=== PATIENT | male | born 1980 | race Caucasian/White ===

== ENCOUNTER 2016-03-23 09:55 | Day surgery (SDC) | payer BC ==
[2016-03-21 08:50] VITALS: BMI 31.6
--- NOTE | 2016-03-23 04:31 | P.GSHP ---
History of Present Illness H&P Date: 03/23/16 CHIEF COMPLAINT: Abdominal pain with diarrhea and history of diverticulitis HISTORY OF PRESENT ILLNESS: The patient is a 35-year-old male who presents with abdominal pain including diarrhea as well as diverticulitis. Lower endoscopy was offered for further evaluation and management. PAST MEDICAL HISTORY: Please see list. PAST SURGICAL HISTORY: Please see list. MEDICATIONS: Please see list. ALLERGIES: Please see list. SOCIAL HISTORY: No illicit drug use FAMILY HISTORY: No reports of Crohn disease or ulcerative colitis. REVIEW OF ORGAN SYSTEMS: CONSTITUTIONAL: No reports of fevers or chills. No reports of weight loss despite prior attempts. GI: Has diarrhea including change in bowel habits. PHYSICAL EXAM: VITAL SIGNS: Stable GENERAL: Well-developed pleasant male in no acute distress. HEENT: No scleral icterus. Extraocular movements grossly intact. Moist buccal mucosa. NECK: Supple without lymphadenopathy. CHEST: Unlabored respirations. Equal bilateral excursions. CARDIOVASCULAR: Regular rate and rhythm. Distal 2+ pulses. ABDOMEN: Soft, nontender, nondistended. MUSCULOSKELETAL: No clubbing, cyanosis, or edema. ASSESSMENT: 1. History of diverticulitis 2. Change in bowel habits. 3. Diarrhea PLAN: 1. Recommend proceeding with a lower endoscopy Past Medical History Additional Past Medical History / Comment(s): abdominal pain, hx diverticulitis History of Any Multi-Drug Resistant Organisms: C-DIFF Date of last positivie culture/infection: 2013 MDRO Source:: stool Past Surgical History: Orthopedic Surgery Additional Past Surgical History / Comment(s): left wrist Past Anesthesia/Blood Transfusion Reactions: Motion Sickness, Postoperative Nausea & Vomiting (PONV) Past Psychological History: No Psychological Hx Reported Smoking Status: Former smoker Past Alcohol Use History: Occasional Additional Past Alcohol Use History / Comment(s): smoked 3-4 years in 20's less than one ppd Past Drug Use History: None Reported - Past Family History Brother(s) Family Medical History: Cancer Additional Family Medical History / Comment(s): esophagus Mother Family Medical History: No Reported History Medications and Allergies Home Medications Medication Instructions Recorded Confirmed Type Ibuprofen [Motrin] 600 mg PO DIRECTED PRN 03/21/16 03/21/16 History Allergies Allergy/AdvReac Type Severity Reaction Status Date / Time No Known Allergies Allergy Verified 03/21/16 08:53
[~2016-03-23 09:55] MED LIST: LACTATED RINGERS 1,000 ML IV SCH; LIDOCAINE 1% 20 ML VIAL (10MG/ML) FOR IV START INTRADERMA PRN
[2016-03-23 10:29] VITALS: TEMP 97.8
[2016-03-23] MEDS ORDERED: PROPOFOL 10 MG/ML 20 ML VIAL IV ONE (10:56)
--- NOTE | 2016-03-23 11:22 | P.PCN ---
Date of Procedure: 03/23/16 Description of Procedure: PREOPERATIVE DIAGNOSES: 1. Personal history of complicated diverticulitis. 2. Family history of colitis. 3. Change in bowel habits. POSTOPERATIVE DIAGNOSES: 1. Personal history of complicated diverticulitis. 2. Mild recent diverticulitis sigmoid colon. 3. Family history of colitis. 4. Sigmoid colonic stricture. 5. Change in bowel habits. PROCEDURE PERFORMED: Colonoscopy to the ileocecal valve and appendiceal orifice. SURGEON: Dr. Umu Irving. ANESTHESIA: MAC. INDICATIONS: The patient is a 35-year-old gentleman who presents with recurrent diverticulitis attack in 12 months. He reports change in bowel habits. Benefits and risks were described. Separately, he also complains o f chronic constipation. Informed consent was obtained. DESCRIPTION: Patient was brought to the endoscopy suite and laid in the left lateral decubitus position. After adequate IV sedation, the rectum was examined with 2% lidocaine jelly. The rectal tone was within normal limits. The prostate was smooth and without nodularity. No lesions were palpated in the rectal vault. Olympus colonoscope was advanced until the ileocecal valve and appendiceal orifice were clearly viewed. The prep was excellent with clear visualization of mucosal lewis. Slowly, the scope was withdrawn to inspect each mucosal fold. Throughout the colon were moderate size diverticuli of the transverse colon and descending colon including sigmoid colon. Along the sigmoid area were medium-sized, mouth diverticula with recent diverticulitis and stricture at 20 cm from the anal verge without mild inflammation. No polyps were encountered. Retroflexion of the scope confirmed no evidence of prolapsed internal hemorrhoids. The colon was desufflated. The patient tolerated the procedure well. FINDINGS: 1. Sigmoid diverticulosis with diverticulitis with stricture. 2. No colonic polyps identified. 3. No arteriovenous malformation. Withdrawal time over 6 minutes. RECOMMENDATIONS: May proceed with surgical resection of sigmoid colon. Lower endoscopy as needed. Plan - Discharge Summary Discharge Medication List Ibuprofen [Motrin] 600 mg PO DIRECTED PRN 03/21/16 [History]
[2016-03-23 11:32] VITALS: PULSE 81
[2016-03-23 11:48] VITALS: BP 108/68; RESP 18
== END 2016-03-23 12:04 | disposition home or self-care (01) ==
LOC: ORWHC2ENDO 09:55
PROVIDERS: ATTEND Surgery Plastic and Reconstructive Surgery
DX: K57.32 Diverticulitis of large intestine without perforation or abscess without bleeding (principal); K57.30 Diverticulosis of large intestine without perforation or abscess without bleeding; K62.4 Stenosis of anus and rectum; Z87.891 Personal history of nicotine dependence; Z83.79 Family history of other diseases of the digestive system
CPT/HCPCS: 45378; J2704; 99153

== ENCOUNTER → 2016-04-06 | Outpatient (CLI) | payer BC ==
[2016-04-06 10:35] LABS: Partial Thromboplastin Time 23.5 sec (22.0-30.0); Prothrombin Time 10.2 sec (9.0-12.0)
--- NOTE | 2016-04-06 12:27 | XR ---
EXAMINATION TYPE: XR chest 2V DATE OF EXAM: 04/06/2016 10:43 AM COMPARISON: NONE HISTORY: Preop for diverticulitis FINDINGS: The lungs are clear and there is no pneumothorax, pleural effusion, or focal pneumonia. Hypertrophic change of the spine noted. IMPRESSION: 1. No acute process.
== END | disposition home or self-care (01) ==
LOC: LABWHC1 09:45
PROVIDERS: ATTEND Surgery Plastic and Reconstructive Surgery
DX: Z01.818 Encounter for other preprocedural examination (principal); K57.92 Diverticulitis of intestine, part unspecified, without perforation or abscess without bleeding; Z01.812 Encounter for preprocedural laboratory examination
CPT/HCPCS: 36415; 71020; 85610; 85730; 86850; 86900; 86901

== ENCOUNTER 2016-04-14 10:26 | Inpatient (IN) | payer BC ==
[2016-04-04 11:47] VITALS: BMI 31.6
--- NOTE | 2016-04-14 08:47 | P.GSHP ---
History of Present Illness H&P Date: 04/14/16 CHIEF COMPLAINT: Abdominal pain with diarrhea and history of diverticulitis HISTORY OF PRESENT ILLNESS: Darrion Morgan is a 35 years-old male who comes in with a history of recurrent diverticulitis for now 2 years. He had a recent colonoscopy that is consistent with a colonic stricture. He now presents for further evaluation, particularly for surgical intervention. PAST MEDICAL HISTORY: Please see list. PAST SURGICAL HISTORY: Please see list. MEDICATIONS: Please see list. ALLERGIES: Please see list. SOCIAL HISTORY: No illicit drug use FAMILY HISTORY: No reports of Crohn disease or ulcerative colitis. REVIEW OF ORGAN SYSTEMS: CONSTITUTIONAL: No reports of fevers or chills. No reports of weight loss despite prior attempts. GI: Has diarrhea including change in bowel habits. PHYSICAL EXAM: VITAL SIGNS: Stable GENERAL: Well-developed pleasant male in no acute distress. HEENT: No scleral icterus. Extraocular movements grossly intact. Moist buccal mucosa. NECK: Supple without lymphadenopathy. CHEST: Unlabored respirations. Equal bilateral excursions. CARDIOVASCULAR: Regular rate and rhythm. Distal 2+ pulses. Abdomen: Bilateral lower abdominal tenderness. MUSCULOSKELETAL: No clubbing, cyanosis, or edema. STUDIES: Colonoscopy was consistent with stricture of the sigmoid at approximately 20 cm. ASSESSMENT: 1. History of recurrent diverticulitis. 2. Left lower quadrant abdominal pain. 3. Family history of diverticulitis. PLAN: 1. The benefits and risks of minimally evasive laparoscopic sigmoid colectomy with possible open technique and possible ostomy were reviewed. 2. Given the chronicity of his symptoms, possibility of ureteral injury was also described. 3. Inpatient hospitalization was advised for over 2 nights. 4. DVT prophylaxis. 5. Antibiotics prophylaxis. 6. Complete time off for recovery at least 4 weeks was also reviewed. 7. He has been prescribed a high protein diet, especially to follow after surgery to which he demonstrated understanding. Past Medical History Additional Past Medical History / Comment(s): abdominal pain, hx diverticulitis History of Any Multi-Drug Resistant Organisms: C-DIFF Date of last positivie culture/infection: 2013 MDRO Source:: stool Past Surgical History: Orthopedic Surgery Additional Past Surgical History / Comment(s): left wrist,colonoscopy x 2 Past Anesthesia/Blood Transfusion Reactions: Motion Sickness, Postoperative Nausea & Vomiting (PONV) Additional Past Anesthesia/Blood Transfusion Reaction / Comment(s): no hx blood transfusion Past Psychological History: No Psychological Hx Reported Smoking Status: Former smoker Past Alcohol Use History: Occasional Additional Past Alcohol Use History / Comment(s): smoked 3-4 years in 20's less than one ppd Past Drug Use History: None Reported - Past Family History Brother(s) Family Medical History: Cancer Additional Family Medical History / Comment(s): esophagus Father Family Medical History: Diabetes Mellitus Mother Family Medical History: No Reported History Medications and Allergies Home Medications Medication Instructions Recorded Confirmed Type Ibuprofen [Motrin] 600 mg PO Q6H PRN 03/21/16 04/04/16 History Allergies Allergy/AdvReac Type Severity Reaction Status Date / Time No Known Allergies Allergy Verified 04/04/16 11:39
[~2016-04-14 10:26] MED LIST changes: +ACETAMINOPHEN TAB 500 MG TAB PO ONE; +ALVIMOPAN 12 MG CAPSULE PO ONE; +Antibiotics per Pharmacy 1 EACH MISC MISCELLANE PRN; +DEXAMETHASONE SOD PHOSPHATE 10 MG/ML 1 ML VIAL IV ONE; +HEPARIN SODIUM,PORCINE 5,000 UNIT/ML 1 ML VIAL SQ ONE; +HYDROmorphone 1 MG/ML 1 ML SYRINGE IVP PRN; -LACTATED RINGERS 1,000 ML IV SCH; -LIDOCAINE 1% 20 ML VIAL (10MG/ML) FOR IV START INTRADERMA PRN; +MIDAZOLAM 2 MG/2 ML VIAL IV PRN; +ONDANSETRON 4 MG/2 ML VIAL IVP ONE; +ceFAZolin 2 GM in SODIUM CHLORIDE 0.9% 100 ML IVPB ONE; +metroNIDAZOLE-NS PMX 500 MG in SALINE 1 100ML.BAG IVPB STA
[2016-04-14] MEDS ORDERED: LIDOCAINE 1% 20 ML VIAL (10MG/ML) FOR IV START INTRADERMA ONE (11:21)
[2016-04-14] MEDS: LACTATED RINGERS 1,000 ML IV SCH (11:23)
[2016-04-14 11:38] LABS: Basophils % (A) 1 %; CH 30.3; CHCM 35.5; Eosinophils # (A) 0.2 k/uL (0-0.7); Eosinophils % (A) 3 %; HDW 2.71; HGB 17.3 gm/dL (13.0-17.5); Luc # (Auto) 0.14; Luc % (Auto) 2; Lymphocytes # (A) 1.8 k/uL (1.0-4.8); Lymphocytes % (A) 32 %; MCH 29.6 pg (25.0-35.0); MCHC 34.6 g/dL (31.0-37.0); MCV 85.5 fL (80.0-100.0); Mean Platelet Volume 6.7; Monocytes # (A) 0.3 k/uL (0-1.0); Monocytes % (A) 6 %; Neutrophils # (A) 3.3 k/uL (1.3-7.7); Neutrophils % (A) 57 %; RBC 5.85 m/uL (4.30-5.90); WBC 5.8 k/uL (3.8-10.6); WBC (Perox) 5.93
[2016-04-14] MEDS ORDERED: fentaNYL (PF) 50 MCG/ML 2 ML AMP IV ONE (11:45)
[2016-04-14] MEDS ORDERED: MIDAZOLAM 2 MG/2 ML VIAL IV ONE (11:45)
[2016-04-14 11:59] LABS: ALT 79 U/L (21-72); AST 39 U/L (17-59); Alkaline Phosphatase 82 U/L (38-126); Anion Gap 14 mmol/L; Blood Urea Nitrogen 12 mg/dL (9-20); Calcium 9.6 mg/dL (8.4-10.2); Carbon Dioxide 22 mmol/L (22-30); Chloride 105 mmol/L (98-107); Glucose 91 mg/dL (74-99); Magnesium 2.1 mg/dL (1.6-2.3); Non-African American GFR(MDRD) >60 (>60 ml/min/1.73 sqM); Potassium 4.5 mmol/L (3.5-5.1); Sodium 141 mmol/L (137-145); Total Bilirubin 1.2 mg/dL (0.2-1.3)
[2016-04-14] MEDS ORDERED: NALOXONE 0.4 MG/ML 1 ML VIAL IV PRN (12:05)
[2016-04-14] MEDS ORDERED: SCOPOLAMINE 1.5MG/72HR PATCH TRANSDERM STA (12:05)
[2016-04-14] MEDS ORDERED: ONDANSETRON 4 MG/2 ML VIAL IVP PRN (12:05)
[2016-04-14] MEDS ORDERED: LIDOCAINE 1% INJ 10MG/ML (20 ML MDV) ONE (12:13)
[2016-04-14] MEDS ORDERED: PROPOFOL 10 MG/ML 20 ML VIAL IV ONE (12:13)
[2016-04-14] MEDS ORDERED: VECURONIUM 10 MG VIAL IV ONE (12:13)
[2016-04-14] MEDS ORDERED: fentaNYL (PF) 50 MCG/ML 2 ML AMP ONE (12:13)
[2016-04-14] MEDS ORDERED: GLYCOPYRROLATE 0.2 MG/ML 2 ML VIAL ONE (12:13)
[2016-04-14] MEDS ORDERED: ALBUMIN HUMAN 5% 250 ML BOTTLE IVPB ONE (12:13)
[2016-04-14] MEDS ORDERED: MIDAZOLAM 2 MG/2 ML VIAL ONE (12:13)
[2016-04-14] MEDS ORDERED: PHENYLEPHRINE-0.9% NACL SYG 1 MG/10 ML SYRINGE ONE (12:13)
[2016-04-14] MEDS ORDERED: NEOSTIGMINE 1 MG/ML 10 ML VIAL ONE (12:13)
[2016-04-14] MEDS ORDERED: SUCCINYLCHOLINE CHLORIDE 100 MG/5 ML SYR IV ONE (12:13)
[2016-04-14] MEDS ORDERED: ONDANSETRON 4 MG/2 ML VIAL ONE (12:13)
[2016-04-14] MEDS ORDERED: HYDROmorphone (PF) 1 MG/ML ONE (12:13)
[2016-04-14] MEDS ORDERED: BUPIVACAIN-EPI 0.25%-1:200,000 30 ML VIAL SQ ONE (12:47)
[2016-04-14] MEDS ORDERED: LACTATED RINGERS 1,000 ML IV ONE ×3 (13:48→16:06)
[2016-04-14] MEDS ORDERED: SODIUM CHLORIDE 0.9% 100 ML with ceFAZolin 2,000 MG IV ONE ×2 (16:08)
[2016-04-14] MEDS ORDERED: BENZOCAINE/MENTHOL LOZENG 1 EACH LOZENGE MUCOUS MEM PRN (16:52)
--- NOTE | 2016-04-14 16:52 | P.PCN ---
Date of Procedure: 04/14/16 Preoperative Diagnosis: Diverticulitis Postoperative Diagnosis: Diverticulitis Procedure(s) Performed: Laparoscopic sigmoid colectomy, mobilization of splenic flexure, intraoperative colonoscopy, placement of #19 round drain in pelvis. Anesthesia: GETA, local, spinal Surgeon: Umu Irving Estimated Blood Loss (ml): 200 Pathology: other (Sigmoid colon) Condition: stable Disposition: floor Operative Findings: 25 mm ILS, final anastomosis negative for leak.
[2016-04-14] MEDS: DEXTROSE 5%-LACTATED RINGERS 1,000 ML IV SCH ×2 (17:08→17:20)
[2016-04-14] MEDS: BUPIVACAINE (PF) 0.5% 50 ML, HYDROmorphone 5 MG in SODIUM CHLORIDE 0.9% 198 ML EPIDURAL PRN (17:08)
[2016-04-14] MEDS: diphenhydrAMINE 50 MG/ML 1 ML VIAL IVP PRN (18:22)
[2016-04-14] MEDS: FAMOTIDINE 20 MG/2 ML VIAL IV SCH (22:17)
[2016-04-14] MEDS: D5-0.45% NACL WITH KCL 20MEQ/L 1,000 ML IV SCH (22:17)
[2016-04-14] MEDS: metroNIDAZOLE-NS PMX 500 MG in SALINE 1 100ML.BAG IVPB SCH (22:17)
[2016-04-14] MEDS: METOCLOPRAMIDE 5 MG/ML 2 ML VIAL IVP SCH (22:17)
[2016-04-14] MEDS: HEPARIN SODIUM,PORCINE 5,000 UNIT/ML 1 ML VIAL SQ SCH (22:18)
[2016-04-15] MEDS: ceFAZolin 2 GM in SODIUM CHLORIDE 0.9% 100 ML IVPB SCH ×3 (00:33→16:36)
[2016-04-15] MEDS: METOCLOPRAMIDE 5 MG/ML 2 ML VIAL IVP SCH ×5 (00:34→23:22)
[2016-04-15] MEDS: metroNIDAZOLE-NS PMX 500 MG in SALINE 1 100ML.BAG IVPB SCH ×2 (04:00→11:58)
[2016-04-15] MEDS: D5-0.45% NACL WITH KCL 20MEQ/L 1,000 ML IV SCH ×3 (05:44→16:45)
[2016-04-15] MEDS: diphenhydrAMINE 50 MG/ML 1 ML VIAL IVP PRN (05:54)
[2016-04-15 07:18] LABS: Basophils % (A) 0 %; CH 29.9; CHCM 34.3; Eosinophils % (A) 0 %; HCT 39.2 % (39.0-53.0); HDW 2.69; Luc # (Auto) 0.06; Luc % (Auto) 1; Lymphocytes # (A) 0.7 k/uL (1.0-4.8); Lymphocytes % (A) 9 %; MCH 29.1 pg (25.0-35.0); MCHC 33.2 g/dL (31.0-37.0); MCV 87.7 fL (80.0-100.0); Mean Platelet Volume 7.4; Monocytes # (A) 0.5 k/uL (0-1.0); Monocytes % (A) 6 %; Neutrophils # (A) 7.2 k/uL (1.3-7.7); Neutrophils % (A) 85 %; RBC 4.47 m/uL (4.30-5.90); RDW 12.9 % (11.5-15.5); WBC 8.6 k/uL (3.8-10.6); WBC (Perox) 8.77
[2016-04-15 07:22] LABS: Anion Gap 9 mmol/L; Blood Urea Nitrogen 12 mg/dL (9-20); Calcium 8.9 mg/dL (8.4-10.2); Carbon Dioxide 26 mmol/L (22-30); Chloride 106 mmol/L (98-107); Glucose 97 mg/dL (74-99); Non-African American GFR(MDRD) >60 (>60 ml/min/1.73 sqM); Potassium 4.4 mmol/L (3.5-5.1); Sodium 141 mmol/L (137-145)
--- NOTE | 2016-04-15 07:38 | OP ---
DATE OF SERVICE: 04/14/2016 SURGEON: MELANY DAMICO MD ASSISTANTS: NONE. PREOPERATIVE DIAGNOSES: 1. Obesity. 2. Body mass index over 30. 3. Recurrent sigmoid diverticulitis. 4. Left lower quadrant abdominal pain. 5. Previous history of diverticulitis with sepsis. POSTOPERATIVE DIAGNOSES: 1. Obesity. 2. Body mass index over 30. 3. Recurrent sigmoid diverticulitis. 4. Left lower quadrant abdominal pain. 5. Previous history of diverticulitis with sepsis. 6. History of oxygen desaturation. OPERATION: 1. Laparoscopic sigmoid colectomy with primary colorectal anastomosis, low anterior resection. 2. Laparoscopic mobilization of splenic flexure. 3. Placement of round #19 Carlo drain left pelvis. 4. Intraoperative colonoscopy for flexible sigmoidoscopy. ANESTHESIA: General with epidural as well as 60 mL 0.25% Marcaine with epinephrine. ESTIMATED BLOOD LOSS: 200 mL. SPECIMENS: Sigmoid colon. COMPLICATIONS: None. FINDINGS: 1. Dense adhesions along the sigmoid colon along the pelvis, a low anterior resection performed. 2. Mobilization of splenic flexure performed to obtain adequate length. 3. Intraoperative revision of colorectal anastomosis performed with negative leak test. INDICATIONS: Darrion Valdez is a 35-year-old gentleman who over 2 years ago had sepsis secondary to diverticulitis. Over the last 2 years he had been trying to manage primarily with dietary changes as well as medications; however, his pain had become persistent and chronic. He just underwent a colonoscopy, which now shows stricture along the sigmoid colon. Surgical intervention with sigmoid colectomy and low anterior resection was described including bleeding, infection, injury to the ureters as well as recurrence and need for further surgery. Placement of ostomy was also described. Informed consent had been obtained. Also preoperative preparation including a low caloric, high-protein diet was performed. Enhanced colon recovery pathway was initiated. The patient underwent a bowel prep mechanical prep as well. DESCRIPTION OF PROCEDURE: In the preoperative area an epidural was placed per Anesthesia. The patient was transferred to the operating room, laid in supine position. After general induction, he was repositioned in modified lithotomy position. Prior to incision, a timeout protocol was confirmed with surgical team regarding the patient's name including procedure to be performed. Please note Garcia catheter was also placed as well. An epigastric 0-degree 5 mm laparoscopic trocar entry was performed and he has had no abdominal surgeries. Diagnostic laparoscopy demonstrated no injury to bowel, viscera or mesentery. Along the right lower groin, a direct inguinal hernia; however, small was identified without evidence of incarceration. The left groin was unremarkable. No moderate greater omental adhesions were encountered. Next two 5 mm trocars were placed along the right lateral abdominal wall under direct visualization. The patient was placed in Trendelenburg position with the left side up. Initial attention was brought to the descending colon, whereby the white line of Toldt was mobilized using a Harmonic scalpel. The colon was mobilized beyond the splenic flexure as to provide adequate length. Attention was brought to the sigmoid colon whereby dense adhesions were confirmed along the pelvis extending along the pelvic brim. Using careful blunt dissection, the rest of the sigmoid colon was mobilized to the pelvic brim. The sigmoid colon was also mobilized to the rectum. The mesocolon was mobilized such that a window was created for the most distal resection at the rectum. Using a [employer] Tri-Stapler 60 mm purple load 2 fires were performed as to resect the specimen from the rectum. Next, the sigmoid colon specimen was mobilized along its mesentery. Bleeding was controlled using Harmonic scalpel. The left colon was mobilized such that the specimen could be brought to the anterior abdominal wall at the lower midline. To facilitate removal of the specimen, a medium-sized Jose E wound protector with GelPort was selected. The incision was made 7 cm along the lower midline just above the pubis. The skin was localized prior to incision. Next, the abdominal cavity was entered and pneumoperitoneum had escaped. The Jose E wound retractor was placed and the specimen was brought out through the wound protector. The colon was further mobilized such that the thickened segment of the sigmoid colon was resected. Approximately 8 inches of sigmoid land leftr colon was resected such that the descending colon was found to be adequate of length. Using an auto pursestring device, the pursestring was fired and then the specimen was resected using a scissor. Sizers were used whereby he had a fairly narrow colon with 25 mm anvil selected. The proximal portion of the colon was cleaned of its fat and hemostasis was checked with electro-Bovie cautery. As the anvil was prepared, the anvil was then entered into the abdominal cavity. Hemostasis was again checked. Then the patient was prepared for primary colorectal anastomosis. At the bedside a sizer was placed along the patient's rectum and adequate length was found of the rectal stump. Next a 25 mm ILS was inserted along the rectum. The stapler was placed anterior to the staple line and then the needle was employed. The anvil and needle were mated and held for at least one minute to control for hemostasis. Next the staple was removed. The donuts were checked and found to be incomplete along the proximal portion. I then performed an intraoperative colonoscopy whereby the flexible scope was inserted along the rectum and beyond the anastomosis. An air leak was confirmed. I then went back to the head of the bed to initially perform a suture buttress of the defect. Using a Covidien Endo Stitch 2-0 Polysorb and Lapra-Ty, the defect was found along the left lateral portion of the anastomosis and the suture was placed. I then went back to perform intraoperative sigmoidoscopy that still confirmed a defect. At this point, a revision of the anastomosis was proposed. I rescrubbed into the case and a 60 mm Covidien purple load was used to resect distal to the staple line with at least 2 fires. Next, the specimen was brought out through the Jose E wound protector and pneumoperitoneum was temporarily escaped. The staple and previous anastomosis was also resected using a 60 mm purple load. The proximal colotomy was prepared and cleaned of its fat. Hemostasis was checked. A 25 mm anvil was placed after firing another auto pursestring device. The anvil in the proximal colon was tied and secured. Next, the anvil was deployed back into the abdominal cavity and pneumoperitoneum was reinsufflated to15 mmHg of pressure which he had tolerated well. Please note the had been in Trendelenburg position whereby he had intermittent oxygen desaturations which was controlled by Anesthesia. Next, an extended length Ethicon 25-mm ILS was placed along the rectum. The stapler was placed anterior to the staple line and the needle was deployed. The anvil and needle were mated with the ILS stapler. The stapler was fired for at least one minute. The stapler was removed. The donuts were checked and found to be full thickness and complete. I then went to the base of the bed to perform a completion intraoperative flexible sigmoidoscopy. The scope was advanced along the rectum and endoscopic image of the final anastomosis was confirmed without any leaks as saline was placed within the pelvis. I then rescrubbed into the case, whereby the Jose E wound retractor was removed. A rounded #19 Carlo drain was placed anterior along the left pelvis also along the anastomosis. A 2-0 nylon was placed for the drain stitch as the drain had exited via the 12 mm port of the right lower abdomen. Please note, a separate 5 mm trocar was placed along the left upper abdomen to facilitate views of the anastomosis. The lower midline incision was reapproximated using double-stranded 0 PDS. The abdomen was reinsufflated whereby the fascial defect was confirmed to be completely closed and without any herniations. The rest of the incisions were reapproximated using 4-0 Monocryl in interrupted subcuticular fashion. Local anesthetic was placed for postop analgesia. Dermabond was applied to the small skin incisions. The lower midline incision was also reapproximated using 3-0 Vicryl for the dermis. The skin was cleansed and then Optifoam surgical antibiotic dressing was placed. CHG Tegaderm was placed over the NEVILLE site to minimize any risk of infection. Bulb suction was placed to the NEVILLE tubing as well. At the end of the procedure, needle, sponge, and instrument count had been verified correct by surgical nurse. The patient was taken to postanesthesia care unit in stable condition. Garcia catheter was continued as he has an epidural. Intraoperative findings were discussed the patient's family who was pleased with the level of care. SHENG
[2016-04-15] MEDS: HEPARIN SODIUM,PORCINE 5,000 UNIT/ML 1 ML VIAL SQ SCH ×2 (08:33→20:38)
[2016-04-15] MEDS: FAMOTIDINE 20 MG/2 ML VIAL IV SCH ×2 (08:34→20:38)
[2016-04-15] MEDS: NALBUPHINE 10 MG/ML AMPUL IV PRN ×2 (12:09→20:38)
--- NOTE | 2016-04-15 12:36 | P.PN ---
Subjective 35-year-old male being seen on rounds this morning. Patient presented on an elective basis to undergo surgical intervention Patient is postop done on April 14 Laparoscopic sigmoid colectomy, mobilization of splenic flexure, intraoperative colonoscopy, placement of #19 round drain in pelvis. has a history of recurrent diverticulitis for 2 years Patient is stating that the pain medication is effective for pain control. States is not passing any gas no stool indwelling Garcia catheter in place a Manoj-La drain in place left lower quadrant patient has remained afebrile white count this morning 8.6 Objective - Vital Signs Vital signs: Vital Signs Temp 98.9 F 04/15/16 07:00 Pulse 93 04/15/16 07:00 Resp 15 04/15/16 07:00 BP 106/68 04/15/16 07:00 Pulse Ox 96 04/15/16 07:00 Intake & Output 04/14/16 04/15/16 04/15/16 18:59 06:59 18:59 Intake Total 3900 100 Output Total 330 2590 1300 Balance 3570 -2490 -1300 Intake: IV 3900 Oral 100 Output: Drainage 90 Left Lower Abdomen 90 Urine 130 2500 1300 Uretheral (Garcia) 1300 Estimated Blood Loss 200 Other: Voiding Method Indwelling Catheter - Exam GENERAL APPEARANCE: 35-year-old male patient is alert, oriented, in no acute distress. Sitting up in a chair VITAL SIGNS: Reviewed HEENT: Head is normocephalic and atraumatic. Pupils are equal and reactive. The nares are patent. Oropharynx is clear without lesions. NECK: Supple without lymphadenopathy. Traches midline. HEART: S1, S2. Regular rate and rhythm. No murmur noted denying chest pain LUNGS: No crackles or wheezes are heard. Sats on room air 96% can use the incentive spirometer can achieve 2000 no cough noted ABDOMEN: Soft, slight surgical tenderness, nondistended a few hypoactive bowel sounds. No peritoneal signs. No palpable organomegaly or masses. Garcia catheter in place remains nothing by mouth except for ice chips and popsicles and gum no nausea no vomiting dressings to the surgical site dry. No redness noted. Manoj-La drain in place left lower quadrant EXTREMITIES: Normal skin color and turgor. No cyanosis, rash, ulceration, clubbing or edema. Radial pedal pulses are 2/4 bilaterally. Venodyne's on to the bilateral lower extremities no calf tenderness NEUROLOGICAL: No focal deficits. Strength and sensation are grossly intact. - Labs CBC & Chem 7: 04/15/16 06:34 04/15/16 06:34 Labs: Abnormal Lab Results - Last 24 Hours (Table) 04/15/16 Range/Units 06:34 Lymphocytes # 0.7 L (1.0-4.8) k/uL Assessment and Plan Plan: Impression Laparoscopic sigmoid colectomy, mobilization of splenic flexure, intraoperative colonoscopy, placement of #19 round drain in pelvis. Done April 14 A recent colonoscopy consistent with the colonic stricture Present on admission abdominal pain with diarrhea in a patient with a history of diverticulitis History of reoccurring diverticulitis for the past 2 years obesity BMI 31 Plan Continue postop surgical care per surgical services Continue with the use of the incentive spirometer use of a 1 hour while awake Pain control DVT and GI prophylaxis Increase activity encourage early ambulation at least 4 times a day Continue IV antibiotic as ordered on Flagyl and kefzol Further recommendations pending will follow The above dictated assessment and findings were discussed with dr Saavedra. Impression and the plan of care have been dictated as directed. Makenna Kenny nurse practitioner acting as a scribe for jair
[2016-04-15] MEDS: BUPIVACAINE (PF) 0.5% 50 ML, HYDROmorphone 5 MG in SODIUM CHLORIDE 0.9% 198 ML EPIDURAL PRN (15:20)
[2016-04-15] MEDS: DEXTROSE 5%-LACTATED RINGERS 1,000 ML IV SCH ×3 (16:32→23:39)
[2016-04-15] MEDS: LACTATED RINGERS 1,000 ML IV SCH (16:33)
--- NOTE | 2016-04-15 19:49 | P.PN ---
Subjective Principal diagnosis: Diverticulitis Please see nurse practitioner for which I agree. Patient seen and evaluated this evening. He is in excellent spirits. Pain is well-controlled. He's tolerating ice chips. He's yet to pass flatus. He denies any abdominal distention. No reports of fevers or chills. At bedside he is using his incentive spirometry. His tidal volumes is over 2500 mL. Labs reviewed consistent with severe dehydration preop with elevated hemoglobin. Objective - Vital Signs Vital signs: Vital Signs Temp 98.1 F 04/15/16 15:00 Pulse 91 04/15/16 15:00 Resp 16 04/15/16 15:00 BP 116/68 04/15/16 15:00 Pulse Ox 93 L 04/15/16 15:00 Intake & Output 04/15/16 04/15/16 04/16/16 06:59 18:59 06:59 Intake Total 100 1200 Output Total 2590 2800 Balance -2490 -1600 Intake: IV 1000 D5-0.45% NaCl with KCl 1000 20Meq/l 1,000 ml @ 125 mls/hr IV .Q8H ANGIE Rx#: [id number] Intake, IV Titration 200 Amount ceFAZolin 2 gm In Sodium 100 Chloride 0.9% 100 ml @ 100 mls/hr IVPB Q8HR ANGIE Rx#:[id number] metroNIDAZOLE-NS PMX 500 100 mg In Saline 1 100ml.bag @ 100 mls/hr IVPB Q8H ANGIE Rx#:[id number] Oral 100 Output: Drainage 90 Left Lower Abdomen 90 Urine 2500 2800 Uretheral (Garcia) 2300 Other: Voiding Method Indwelling Catheter - Exam Abdomen: NEVILLE serosanguineous. Midline lower incision dressing intact with minimal serosanguineous drainage. No signs of cellulitis or infection. Abdomen is nondistended. - Labs CBC & Chem 7: 04/15/16 06:34 04/15/16 06:34 Labs: Abnormal Lab Results - Last 24 Hours (Table) 04/15/16 Range/Units 06:34 Lymphocytes # 0.7 L (1.0-4.8) k/uL Assessment and Plan (1) Sigmoid diverticulitis Status: Chronic (2) Obesity (BMI 30.0-34.9) Status: Chronic (3) BMI 30.0-30.9,adult Status: Chronic (4) S/P laparoscopic colectomy Status: Acute Plan: 1. Care plan was reviewed with him which includes advancing his diet to full liquid diet. 2. Continue with incentive spirometer. 3. Upon start of flatus, discontinue epidural no later than postop day 3. 4. Discharge diet including protein shakes were reviewed on full liquid diet. 5. NEVILLE teaching. 6. NEVILLE drain to be discontinued in the office. 7. May wear abdominal binder for comfort. 8. Disposition anticipated in 3-4 days.
[2016-04-16] MEDS: D5-0.45% NACL WITH KCL 20MEQ/L 1,000 ML IV SCH ×4 (01:00→23:15)
[2016-04-16] MEDS: METOCLOPRAMIDE 5 MG/ML 2 ML VIAL IVP SCH ×4 (05:00→23:15)
[2016-04-16 06:54] LABS: Basophils # (A) 0.1 k/uL (0-0.2); Basophils % (A) 1 %; CHCM 34.2; Eosinophils # (A) 0.1 k/uL (0-0.7); Eosinophils % (A) 2 %; HCT 40.3 % (39.0-53.0); HDW 2.65; HGB 13.2 gm/dL (13.0-17.5); Luc # (Auto) 0.08; Luc % (Auto) 1; Lymphocytes # (A) 1.7 k/uL (1.0-4.8); Lymphocytes % (A) 22 %; MCH 28.8 pg (25.0-35.0); MCHC 32.7 g/dL (31.0-37.0); MCV 88.1 fL (80.0-100.0); Mean Platelet Volume 7.3; Monocytes # (A) 0.5 k/uL (0-1.0); Monocytes % (A) 6 %; Neutrophils # (A) 5.3 k/uL (1.3-7.7); Neutrophils % (A) 68 %; RBC 4.57 m/uL (4.30-5.90); RDW 12.8 % (11.5-15.5); WBC 7.8 k/uL (3.8-10.6); WBC (Perox) 7.98
[2016-04-16 07:09] LABS: Anion Gap 9 mmol/L; Blood Urea Nitrogen 13 mg/dL (9-20); Calcium 8.7 mg/dL (8.4-10.2); Carbon Dioxide 29 mmol/L (22-30); Chloride 104 mmol/L (98-107); Glucose 90 mg/dL (74-99); Non-African American GFR(MDRD) >60 (>60 ml/min/1.73 sqM); Potassium 4.3 mmol/L (3.5-5.1); Sodium 142 mmol/L (137-145)
[2016-04-16] MEDS: FAMOTIDINE 20 MG/2 ML VIAL IV SCH ×2 (08:34→20:05)
[2016-04-16] MEDS: HEPARIN SODIUM,PORCINE 5,000 UNIT/ML 1 ML VIAL SQ SCH ×2 (08:34→20:05)
[2016-04-16] MEDS: DEXTROSE 5%-LACTATED RINGERS 1,000 ML IV SCH ×3 (13:44→23:09)
--- NOTE | 2016-04-16 14:28 | P.PN ---
Subjective Principal diagnosis: Recurrent diverticulitis with stricture and Sigmoid colectomy This 35-year-old male who recently underwent sigmoid colectomy for diverticular stricture. He is overall doing well. There is no nausea no vomiting. He is ablating well. He is using his incentive spirometry to 3000 mL. He does not recall having passed flatus. The is been staying with him said that last night at spelled a lot he may have passed flatus. He's not had any bowel movements. He is in minimal amount of pain when ambulating. There is no nausea no vomiting is tolerating his full liquid diet. Objective - Vital Signs Vital signs: Vital Signs Temp 97.5 F L 04/16/16 14:18 Pulse 94 04/16/16 14:18 Resp 16 04/16/16 14:18 BP 126/83 04/16/16 14:18 Pulse Ox 94 L 04/16/16 14:18 Intake & Output 04/15/16 04/16/16 04/16/16 18:59 06:59 18:59 Intake Total 1200 480 Output Total 2800 1310 10 Balance -1600 -1310 470 Intake: IV 1000 D5-0.45% NaCl with KCl 1000 20Meq/l 1,000 ml @ 125 mls/hr IV .Q8H ANGIE Rx#: [id number] Intake, IV Titration 200 Amount ceFAZolin 2 gm In Sodium 100 Chloride 0.9% 100 ml @ 100 mls/hr IVPB Q8HR ANG[facility] Rx#:[id number] metroNIDAZOLE-NS PMX 500 100 mg In Saline 1 100ml.bag @ 100 mls/hr IVPB Q8H [facility] Rx#:[id number] Oral 480 Output: Drainage 35 10 Left Lower Abdomen 35 10 Urine 2800 1275 Uretheral (Garcia) 2300 1275 Other: Voiding Method Indwelling Catheter Indwelling Catheter Indwelling Catheter - Constitutional General appearance: Present: cooperative - EENT Eyes: Present: PERRLA - Cardiovascular Rhythm: regular - Gastrointestinal Gastrointestinal Comment(s): Abdomen is soft and mildly distended appropriately tender. Incision is clean and dry. NEVILLE drain does not have a lot of drainage. - Labs CBC & Chem 7: 04/16/16 06:10 04/16/16 06:10 Assessment and Plan (1) Diverticulitis Status: Acute (2) S/P laparoscopic colectomy Status: Acute (3) Sigmoid diverticulitis Status: Chronic Plan: Overall the patient is doing very well today. He is will be continued on his full liquid diet. At this time it is not confirmed he has passed flatus are not. I will not remove the epidural today. As well as he passed flatus which is expected to happen overnight I will remove the epidural and Garcia catheter. For potential discharge in 24-48 hours.
[2016-04-16] MEDS: BUPIVACAINE (PF) 0.5% 50 ML, HYDROmorphone 5 MG in SODIUM CHLORIDE 0.9% 198 ML EPIDURAL PRN (15:36)
--- NOTE | 2016-04-16 18:50 | P.PN ---
Progress Note - Text Postoperative day 2 status post sigmoid colectomy, epidural catheter placed for postoperative analgesia, patient doing well, currently at 9 mL per hour, combination infusion of bupivacaine/Dilaudid, no motor deficit , epidural site good. Assessment and plan= postop day 2 , patient doing well , pain controled ,we will continue the same management
[2016-04-17] MEDS: METOCLOPRAMIDE 5 MG/ML 2 ML VIAL IVP SCH ×3 (05:02→19:05)
[2016-04-17] MEDS: D5-0.45% NACL WITH KCL 20MEQ/L 1,000 ML IV SCH ×2 (05:06→22:51)
[2016-04-17] MEDS: HEPARIN SODIUM,PORCINE 5,000 UNIT/ML 1 ML VIAL SQ SCH ×3 (07:53→22:53)
[2016-04-17] MEDS: FAMOTIDINE 20 MG/2 ML VIAL IV SCH ×3 (07:53→23:20)
--- NOTE | 2016-04-17 11:39 | P.PN ---
Subjective Principal diagnosis: Recurrent diverticulitis with stricture and Sigmoid colectomy This 35-year-old male who recently underwent sigmoid colectomy for diverticular stricture. He is overall doing well. There is no nausea no vomiting. He is ambulating well. He is using his incentive spirometry to 3000 mL. the patient has passed flatus. He is ablating well. He also the small bowel movements is bloody. Is tolerating a full liquid diet without any problems. Objective - Vital Signs Vital signs: Vital Signs Temp 98.4 F 04/17/16 07:00 Pulse 96 04/17/16 07:00 Resp 16 04/17/16 07:00 BP 121/75 04/17/16 07:00 Pulse Ox 92 L 04/17/16 07:42 Intake & Output 04/16/16 04/17/16 04/17/16 18:59 06:59 18:59 Intake Total 1698.4 1500 480 Output Total 1125 2775 Balance 573.4 -1275 480 Intake: IV 1000 1500 D5-0.45% NaCl with KCl 1000 1500 20Meq/l 1,000 ml @ 125 mls/hr IV .Q8H [facility] Rx#: [id number] Intake, IV Titration 218.4 Amount Bupivacaine (Pf) 0.5% 50 218.4 ml HYDROmorphone 5 mg In Sodium Chloride 0.9% 198 ml @ Per Protocol EPIDURAL .Q0M PRN Rx#: [id number] Oral 480 480 Output: Drainage 25 25 Left Lower Abdomen 25 25 Urine 1100 2750 Uretheral (Agrcia) 1100 2750 Other: Voiding Method Indwelling Catheter Indwelling Catheter - Constitutional General appearance: Present: obese - EENT Eyes: Present: EOMI, PERRLA ENT: Absent: hard of hearing - Cardiovascular Rhythm: regular - Gastrointestinal Gastrointestinal Comment(s): The dressing is clean dry and intact. This minimal amount of serosanguineous drainage. General gastrointestinal: Present: normal bowel sounds, soft - Labs CBC & Chem 7: 04/16/16 06:10 04/16/16 06:10 Assessment and Plan (1) Diverticulitis Status: Acute (2) S/P laparoscopic colectomy Status: Acute (3) Sigmoid diverticulitis Status: Chronic Plan: The 35-year-old male status post sigmoid colectomy. Overall the patient is doing very well. I will discontinue the epidural as well as the Garcia catheter. Once that was done his diet will be advanced. Possible discharge in 24-48 hours.
[2016-04-17] MEDS: HYDROcodone/APAP 5-325MG 1 EACH TAB PO PRN ×2 (14:58→22:34)
[2016-04-17] MEDS ORDERED: MORPHINE SULFATE 2 MG/ML SYRINGE IVP PRN (16:06)
[2016-04-17] MEDS: DEXTROSE 5%-LACTATED RINGERS 1,000 ML IV SCH (22:52)
[2016-04-18] MEDS: METOCLOPRAMIDE 5 MG/ML 2 ML VIAL IVP SCH ×4 (00:42→18:47)
[2016-04-18 00:51] VITALS: RESP 16
[2016-04-18] MEDS: D5-0.45% NACL WITH KCL 20MEQ/L 1,000 ML IV SCH (03:14)
[2016-04-18] MEDS: DEXTROSE 5%-LACTATED RINGERS 1,000 ML IV SCH (04:29)
[2016-04-18] MEDS: HYDROcodone/APAP 5-325MG 1 EACH TAB PO PRN ×3 (05:15→18:47)
[2016-04-18] MEDS: FAMOTIDINE 20 MG/2 ML VIAL IV SCH (07:58)
[2016-04-18] MEDS: HEPARIN SODIUM,PORCINE 5,000 UNIT/ML 1 ML VIAL SQ SCH (07:58)
[2016-04-18 09:07] VITALS: PULSE 91
--- NOTE | 2016-04-18 09:22 | P.PN ---
Subjective Principal diagnosis: Diverticulitis Patient is postop day 4 status post lap sigmoid colectomy. He began passing flatus yesterday. He tolerated liquid and soft diet. He complains of elbow pain including a challenging night with patient care yesterday. No reports of fevers. No reports of nausea and vomiting. He's and bleeding. He is urinating. Objective - Vital Signs Vital signs: Vital Signs Temp 98.3 F 04/18/16 07:00 Pulse 91 04/18/16 07:00 Resp 16 04/18/16 07:00 BP 129/91 04/18/16 07:00 Pulse Ox 95 04/18/16 07:00 Intake & Output 04/17/16 04/18/16 04/18/16 18:59 06:59 18:59 Intake Total 2560 1500 Output Total 2385 950 Balance 175 550 Intake: IV 1000 1500 D5-0.45% NaCl with KCl 1000 1500 20Meq/l 1,000 ml @ 125 mls/hr IV .Q8H [facility] Rx#: [id number] Oral 1560 Output: Drainage 35 30 Left Lower Abdomen 35 30 Urine 2350 920 Uretheral (Garcia) 2350 Other: Voiding Method Indwelling Catheter Toilet Urinal # Voids 1 # Bowel Movements 1 1 - Exam GENERAL: Well developed and in no acute distress. Pleasant. HEENT: No sclera icterus. Extraocular movements grossly intact. Moist buccal mucosa. Head is atraumatic, normocephalic. Hears conversational speech. No nasal drainage. CHEST: Non-labored respirations and equal bilateral excursions. CARDIOVASCULAR: Regular rate and rhythm. Palpable 2+ radial pulses. ABDOMEN: Soft, nontender. Nondistended. Incisions intact with Optifoam. NEVILLE serosanguineous. MUSCULOSKELETAL: No clubbing, cyanosis or edema. NEURO: No focal or lateralizing signs. Cranial nerves II through XII grossly intact. PSYCH: Appropriate affect. Alert and order person place and time. - Labs CBC & Chem 7: 04/16/16 06:10 04/16/16 06:10 Assessment and Plan (1) Sigmoid diverticulitis Status: Chronic (2) Obesity (BMI 30.0-34.9) Status: Chronic (3) BMI 30.0-30.9,adult Status: Chronic (4) S/P laparoscopic colectomy Status: Acute Plan: 1. Abdominal binder at all times for comfort. 2. Discharged home on full liquid diet. 3. NEVILLE drain to be discontinued in the office. 4. Follow-up in the office tomorrow.
--- NOTE | 2016-04-18 09:23 | P.DS ---
Providers Date of admission: 04/14/16 10:26 Expected date of discharge: 04/18/16 Attending physician: Umu Irving Primary care physician: Stated None - Discharge Diagnosis(es) (1) Sigmoid diverticulitis Current Visit: Yes Status: Chronic (2) Obesity (BMI 30.0-34.9) Current Visit: Yes Status: Chronic (3) BMI 30.0-30.9,adult Current Visit: Yes Status: Chronic (4) S/P laparoscopic colectomy Current Visit: Yes Status: Acute Hospital Course: The patient is a 35-year-old gentleman with over 2 year history of diverticulitis. In the past he had sepsis secondary to diverticulitis and had been hospitalized. He reports increased bilateral lower abdominal pain and has had more than 3+ episodes and attacks in 6 months. He elected for a sigmoid colectomy. He underwent a laparoscopic sigmoid colectomy with mobilization of splenic flexure and intraoperative colonoscopy with placement of NEVILLE drain. Postoperatively, his pain was controlled with epidural. He was tolerating diet. No reports of fevers or chills. A Manoj-La drain and instructions were reviewed. Discharge instructions including discharge diet was also clearly reviewed with him. Procedures: 1. Laparoscopic sigmoid resection with colorectal anastomosis, low anterior resection. 2. Laparoscopic mobilization of splenic flexure. 3. Intraoperative colonoscopy to descending colon. 4. Placement of NEVILLE drain, round #19 Patient Condition at Discharge: Stable Plan - Discharge Summary New Discharge Prescriptions: Hydrocodone/Acetaminophen [[place] 5-325] 1 - 2 each PO Q6HR PRN #60 tab PRN Reason: Pain Discharge Medication List Hydrocodone/Acetaminophen [[place] 5-325] 1 - 2 each PO Q6HR PRN #60 tab 04/15/16 [Rx] Follow up Appointment(s)/Referral(s): Umu Irving MD [STAFF PHYSICIAN] - 04/19/16 2:00 pm Patient Instructions/Handouts: Manoj-La Drain Care (GEN), Diverticulitis ( GEN), Diverticulosis Diet (GEN), Laparoscopic Bowel Resection (DC), Hydrocodone/ Acetaminophen (By mouth), Diverticulitis Diet (GEN) Activity/Diet/Wound Care/Special Instructions: No lifting over 4 pounds in 4 weeks. Continue with full liquid diet only. Recommend protein shakes at least 90 g daily. Wear abdominal binder for comfort. May sponge bath. Discharge Disposition: HOME SELF-CARE
--- NOTE | 2016-04-18 09:33 | P.PN ---
Progress Note - Text Patient now has concerns of left elbow swelling. Orthopedic associates consulted with evaluation consistent with new left elbow effusion. Discharge on hold pending completion of work-up.
--- NOTE | 2016-04-18 09:56 | XR ---
EXAMINATION TYPE: XR elbow complete LT DATE OF EXAM: 04/18/2016 9:52 AM COMPARISON: NONE HISTORY: Pain Three views of the elbow demonstrate pathologic displacement of the anterior fat pad. No fracture gabriella e seen. Tiny olecranon spur noted. IMPRESSION: 1. Pathologic joint effusion. Occult fracture suspected. Correlate clinically.
[2016-04-18 10:24] LABS: Basophils % (A) 0 %; CH 30.2; CHCM 34.7; Eosinophils # (A) 0.1 k/uL (0-0.7); Eosinophils % (A) 2 %; HCT 45.1 % (39.0-53.0); HDW 2.71; HGB 15.2 gm/dL (13.0-17.5); Luc # (Auto) 0.08; Luc % (Auto) 1; Lymphocytes % (A) 13 %; MCH 29.4 pg (25.0-35.0); MCHC 33.7 g/dL (31.0-37.0); MCV 87.2 fL (80.0-100.0); Mean Platelet Volume 6.9; Monocytes # (A) 0.3 k/uL (0-1.0); Monocytes % (A) 4 %; Neutrophils # (A) 6.5 k/uL (1.3-7.7); Neutrophils % (A) 80 %; RBC 5.17 m/uL (4.30-5.90); RDW 12.8 % (11.5-15.5); WBC 8.2 k/uL (3.8-10.6); WBC (Perox) 8.47
[2016-04-18 15:11] VITALS: BP 132/90; TEMP 97.9
--- NOTE | 2016-04-18 15:29 | XR ---
EXAMINATION TYPE: XR skull limited DATE OF EXAM: 04/18/2016 2:58 PM COMPARISON: NONE HISTORY: Pre-MRI orbits TECHNIQUE: 2 views of the skull submitted FINDINGS: No metallic foreign body overlying the orbits. IMPRESSION: 1. No metallic foreign body overlying the orbits.
--- NOTE | 2016-04-18 19:21 | P.PN ---
Progress Note - Text Patient seen and reevaluated this evening. X-rays are consistent with left elbow effusion. He denies any recent history of trauma to the left elbow to explain effusion. He had been seen by orthopedic associates. I reviewed his healthcare options as MRI was discussed. Patient and family were eager to be discharged with follow-up as outpatient. They are aware that he will need an MRI as outpatient. A sling has been placed. Patient will follow with me in the office with outpatient follow-up with orthopedic associates.
== END 2016-04-18 20:09 | disposition home or self-care (01) | DRG 330 ==
LOC: 2ORWHC 10:26 → 3SUR 17:11
PROVIDERS: ADMIT Surgery Plastic and Reconstructive Surgery; ATTEND Surgery Plastic and Reconstructive Surgery
PROC: 0DBN4ZZ Excision of Sigmoid Colon, Percutaneous Endoscopic Approach (ICD-10-PCS; principal; 2016-04-14 12:00)
DX: K57.32 Diverticulitis of large intestine without perforation or abscess without bleeding (principal); K56.69 Other intestinal obstruction; E86.0 Dehydration; Z87.891 Personal history of nicotine dependence; M25.422 Effusion, left elbow
CPT/HCPCS: 36415; 70250; 80048; 80053; 83735; 85025; 86850; 86900; 86901; 88307; 88341; 88342; 94760

== ENCOUNTER 2017-02-11 17:28 | Emergency (ER) | payer BC ==
[2017-02-11 17:34] VITALS: BP 141/81; PULSE 81; RESP 18; TEMP 98
[2017-02-11] MEDS ORDERED: DIPH,PERTUS(ACELL)TETVAC-LF 0.5 ML VIAL IM ONE (17:43)
--- NOTE | 2017-02-11 17:45 | ED ---
Skin/Abscess/FB HPI - General Chief complaint: Skin/Abscess/Foreign Body Stated complaint: Head injury Time Seen by Provider: 02/11/17 17:38 Source: patient, RN notes reviewed Mode of arrival: ambulatory Limitations: no limitations - History of Present Illness Initial comments: 36-year-old male presents emergency Department chief complaint laceration. Patient states that he was wrenching on her needs of a vehicle states it slipped causing a laceration to the frontal aspect of his head. Patient states he did not lose consciousness he has no headache at this time denies any confusion. Patient has no blurred vision. Patient states is unsure when his last tetanus was. Patient denies any focal weakness. Patient denies any other complaints. - Related Data Home Medications Medication Instructions Recorded Confirmed No Known Home Medications [No 02/11/17 02/11/17 Known Home Medications] Allergies Allergy/AdvReac Type Severity Reaction Status Date / Time No Known Allergies Allergy Verified 02/11/17 17:34 Review of Systems ROS Statement: Those systems with pertinent positive or pertinent negative responses have been documented in the HPI. ROS Other: All systems not noted in ROS Statement are negative. Past Medical History Additional Past Medical History / Comment(s): abdominal pain, hx diverticulitis History of Any Multi-Drug Resistant Organisms: C-DIFF Date of last positivie culture/infection: 2013 MDRO Source:: stool Past Surgical History: Orthopedic Surgery Additional Past Surgical History / Comment(s): left wrist,colonoscopy x 2 Past Anesthesia/Blood Transfusion Reactions: Motion Sickness, Postoperative Nausea & Vomiting (PONV) Additional Past Anesthesia/Blood Transfusion Reaction / Comment(s): no hx blood transfusion Past Psychological History: No Psychological Hx Reported Smoking Status: Former smoker Past Alcohol Use History: Occasional Past Drug Use History: None Reported - Past Family History Brother(s) Family Medical History: Cancer Additional Family Medical History / Comment(s): esophagus Father Family Medical History: Diabetes Mellitus Mother Family Medical History: No Reported History General Exam Limitations: no limitations General appearance: alert, in no apparent distress Head exam: Present: atraumatic, normocephalic. Absent: normal inspection (3 cm superficial laceration frontal aspect) Eye exam: Present: normal appearance, PERRL, EOMI. Absent: scleral icterus, conjunctival injection, periorbital swelling ENT exam: Present: normal exam, normal oropharynx, mucous membranes moist, TM's normal bilaterally Neck exam: Present: normal inspection, full ROM. Absent: tenderness, meningismus, lymphadenopathy Respiratory exam: Present: normal lung sounds bilaterally. Absent: respiratory distress, wheezes, rales, rhonchi, stridor Cardiovascular Exam: Present: regular rate, normal rhythm, normal heart sounds. Absent: systolic murmur, diastolic murmur, rubs, gallop, clicks Neurological exam: Present: alert, oriented X3, CN II-XII intact, reflexes normal, other (Finger to nose intact bilaterally without overshooting). Absent : motor sensory deficit Skin exam: Present: warm, dry, intact, normal color. Absent: rash Course Vital Signs 02/11/17 17:32 Temperature 98 F Pulse Rate 81 Respiratory 18 Rate Blood Pressure 141/81 O2 Sat by Pulse 98 Oximetry Procedures - Laceration Laceration #1 Consent Obtained: verbal consent Indication: laceration Site: scalp Size (cm): 3 Description: linear, avulsion Depth: simple, single layer Anesthetic Used: lidocaine 1%, without epi Anesthesia Technique: local infiltration Amount (mls): 3 Pre-repair: wound explored, irrigated extensively, deep structures intact Type of Sutures: nylon Size of Sutures: 5-0 Number of Sutures: 4 Technique: simple, interrupted Patient Tolerated Procedure: well, no complications Additional Comments: Bacitracin applied Medical Decision Making - Medical Decision Making 36-year-old male present emergency Department chief complaint of laceration to scalp. This was closed using sutures. Patient tolerated well the wound was cleaned thoroughly is no foreign bodies. Patient had no evidence of traumatic brain injury. Patient we discharged with wound care discharge and to return parameters. Disposition Clinical Impression: Scalp laceration Disposition: HOME SELF-CARE Condition: Stable Instructions: Laceration (ED), Care For Your Stitches (ED) Additional Instructions: Return in 7 days for suture removal. Please return to the Emergency Department if symptoms worsen or any other concerns. Referrals: Waldo Garcia MD [Primary Care Provider] - 1-2 days Time of Disposition: 18:09
== END 2017-02-11 18:42 | disposition home or self-care (01) ==
LOC: EC 17:28
DX: S01.01XA Laceration without foreign body of scalp, initial encounter (principal); Z87.891 Personal history of nicotine dependence; Z23 Encounter for immunization; W26.8XXA Contact with other sharp object(s), not elsewhere classified, initial encounter; Y93.89 Activity, other specified
CPT/HCPCS: 12002; 90471; 90715; 99282

== ENCOUNTER 2020-05-31 12:20 | Emergency (ER) | payer BC ==
--- NOTE | 2020-05-31 13:18 | ED ---
Fever HPI - General Chief Complaint: Fever Stated Complaint: fever/body aches Time Seen by Provider: 05/31/20 12:41 Source: patient, RN notes reviewed Mode of arrival: ambulatory Limitations: no limitations - History of Present Illness Initial Comments: 39-year-old male presents emergency Department chief complaint of cough cold- like symptoms. Patient states he has body aches, slight nausea states that he just doesn't feel well. Patient is concerned about possible Covid. Patient denies any significant past medical history. Denies any chest pain or shortness of breath. Denies any other complaints. - Related Data Home Medications Medication Instructions Recorded Confirmed No Known Home Medications 02/11/17 02/11/17 Allergies Allergy/AdvReac Type Severity Reaction Status Date / Time No Known Allergies Allergy Verified 05/31/20 12:40 Review of Systems ROS Statement: Those systems with pertinent positive or pertinent negative responses have been documented in the HPI. ROS Other: All systems not noted in ROS Statement are negative. Past Medical History Additional Past Medical History / Comment(s): abdominal pain, hx diverticulitis. gout History of Any Multi-Drug Resistant Organisms: C-DIFF Date of last positivie culture/infection: 2013 MDRO Source:: stool Past Surgical History: Bowel Resection, Hernia Repair, Orthopedic Surgery Additional Past Surgical History / Comment(s): left wrist,colonoscopy x 2 Past Anesthesia/Blood Transfusion Reactions: Motion Sickness, Postoperative Nausea & Vomiting (PONV) Additional Past Anesthesia/Blood Transfusion Reaction / Comment(s): no hx blood transfusion Past Psychological History: No Psychological Hx Reported Smoking Status: Never smoker Past Alcohol Use History: Occasional Past Drug Use History: None Reported - Past Family History Brother(s) Family Medical History: Cancer Additional Family Medical History / Comment(s): esophagus Father Family Medical History: Diabetes Mellitus Mother Family Medical History: No Reported History General Exam Limitations: no limitations General appearance: alert, in no apparent distress Head exam: Present: atraumatic, normocephalic, normal inspection Eye exam: Present: normal appearance, PERRL, EOMI. Absent: scleral icterus, conjunctival injection, periorbital swelling ENT exam: Present: normal exam, normal oropharynx, mucous membranes moist Neck exam: Present: normal inspection, full ROM. Absent: tenderness, meningismus, lymphadenopathy Respiratory exam: Present: normal lung sounds bilaterally. Absent: respiratory distress, wheezes, rales, rhonchi, stridor Cardiovascular Exam: Present: regular rate, normal rhythm, normal heart sounds. Absent: systolic murmur, diastolic murmur, rubs, gallop, clicks GI/Abdominal exam: Present: soft, normal bowel sounds. Absent: distended, tenderness, guarding, rebound, rigid Neurological exam: Present: alert, oriented X3 Skin exam: Present: warm, dry, intact, normal color. Absent: rash Course Vital Signs 05/31/20 12:36 Temperature 99 F Pulse Rate 105 H Respiratory 22 Rate Blood Pressure 134/94 O2 Sat by Pulse 99 Oximetry Medical Decision Making - Medical Decision Making Patient is positive for covid Patient we discharged stable condition patient was evaluated stable. Return parameters were discussed. - Lab Data Lab Results 05/31/20 Range/Units 12:48 Coronavirus (PCR) Detected A (Not Detectd) Disposition Clinical Impression: COVID-19 Disposition: HOME SELF-CARE Condition: Stable Instructions (If sedation given, give patient instructions): Coronavirus Disease 2019 (COVID-19) Additional Instructions: Please return to the Emergency Department if symptoms worsen or any other concerns. Is patient prescribed a controlled substance at d/c from ED?: No Referrals: Toan Cole MD [Primary Care Provider] - 1-2 days Time of Disposition: 13:35
[2020-05-31 13:45] VITALS: BP 130/84; PULSE 85; RESP 18; TEMP 99.1
== END 2020-05-31 13:45 | disposition home or self-care (01) ==
LOC: EC 12:20
DX: U07.1 COVID-19 (principal)
CPT/HCPCS: 87635; 99283

== ENCOUNTER → 2020-08-20 | Outpatient (CLI) | payer BC ==
[2020-08-20 11:09] LABS: Basophils % (A) 0 %; Eosinophils # (A) 0.2 k/uL (0-0.7); Eosinophils % (A) 3 %; HCT 46.1 % (39.0-53.0); HGB 15.8 gm/dL (13.0-17.5); Lymphocytes # (A) 1.4 k/uL (1.0-4.8); Lymphocytes % (A) 21 %; MCH 29.7 pg (25.0-35.0); MCHC 34.3 g/dL (31.0-37.0); MCV 86.6 fL (80.0-100.0); Mean Platelet Volume 7.2; Monocytes # (A) 0.3 k/uL (0-1.0); Monocytes % (A) 5 %; Neutrophils # (A) 4.6 k/uL (1.3-7.7); Neutrophils % (A) 70 %; Platelet Count 219 k/uL (150-450); RBC 5.32 m/uL (4.30-5.90); RDW 13.3 % (11.5-15.5); WBC 6.5 k/uL (3.8-10.6)
[2020-08-20 11:21] LABS: C Reactive Protein 0.7 mg/dL (<1.0); Uric Acid 5.9 mg/dL (3.5-8.5)
[2020-08-20 13:44] LABS: Erythrocyte Sedimentation Rate 2 mm/hr (0-15)
== END | disposition home or self-care (01) ==
LOC: LABWHC1 09:38
PROVIDERS: ATTEND Podiatrist Foot & Ankle Surgery
DX: M13.80 Other specified arthritis, unspecified site (principal); L08.9 Local infection of the skin and subcutaneous tissue, unspecified
CPT/HCPCS: 36415; 84550; 85025; 85652; 86038; 86140; 86431

== ENCOUNTER 2020-09-23 22:23 | Emergency (ER) | payer BC ==
[2020-09-23 22:27] VITALS: BP 126/78; PULSE 119; RESP 18; TEMP 98.4
--- NOTE | 2020-09-23 23:56 | ED ---
ENT HPI - General Chief complaint: ENT Stated complaint: bug in ear Time Seen by Provider: 09/23/20 22:38 Source: patient Mode of arrival: ambulatory Limitations: no limitations - History of Present Illness Initial comments: 40-year-old male presents to emergency Department with a chief complaint of bug in the right ear. Patient reports she was working when he noticed a bug flew into his ear. States he can still feel it moving. He does not report any changes to his hearing in the right ear. States he attempted to take it out with a Q-tip with no improvement in symptoms. Denies any significant pain but only reports discomfort. - Related Data Home Medications Medication Instructions Recorded Confirmed No Known Home Medications 02/11/17 02/11/17 Allergies Allergy/AdvReac Type Severity Reaction Status Date / Time No Known Allergies Allergy Verified 05/31/20 12:40 Review of Systems ROS Statement: Those systems with pertinent positive or pertinent negative responses have been documented in the HPI. ROS Other: All systems not noted in ROS Statement are negative. Past Medical History Additional Past Medical History / Comment(s): abdominal pain, hx diverticulitis. gout History of Any Multi-Drug Resistant Organisms: C-DIFF Date of last positivie culture/infection: 2013 MDRO Source:: stool Past Surgical History: Bowel Resection, Hernia Repair, Orthopedic Surgery Additional Past Surgical History / Comment(s): left wrist,colonoscopy x 2 Past Anesthesia/Blood Transfusion Reactions: Motion Sickness, Postoperative Nausea & Vomiting (PONV) Additional Past Anesthesia/Blood Transfusion Reaction / Comment(s): no hx blood transfusion Past Psychological History: No Psychological Hx Reported Smoking Status: Never smoker Past Alcohol Use History: Occasional Past Drug Use History: None Reported - Past Family History Brother(s) Family Medical History: Cancer Additional Family Medical History / Comment(s): esophagus Father Family Medical History: Diabetes Mellitus Mother Family Medical History: No Reported History General Exam Limitations: no limitations General appearance: alert, in no apparent distress Head exam: Present: atraumatic, normocephalic, normal inspection Eye exam: Present: normal appearance, PERRL, EOMI Pupils: Present: normal accommodation ENT exam: Present: normal exam, normal oropharynx, mucous membranes moist, TM's normal bilaterally. Absent: normal external ear exam (Foreign body noted in the right ear. Appears to be an insect) Neck exam: Present: normal inspection, full ROM. Absent: tenderness Respiratory exam: Present: normal lung sounds bilaterally. Absent: respiratory distress Cardiovascular Exam: Present: regular rate, normal rhythm, normal heart sounds. Absent: systolic murmur Extremities exam: Present: normal inspection, full ROM Back exam: Present: normal inspection, full ROM Neurological exam: Present: alert, oriented X3 Psychiatric exam: Present: normal affect, normal mood Skin exam: Present: warm, dry, intact, normal color Course Vital Signs 09/23/20 22:25 Temperature 98.4 F Pulse Rate 119 H Respiratory 18 Rate Blood Pressure 126/78 O2 Sat by Pulse 99 Oximetry Procedures - Foreign Body Removal Ear Location: ear canal (R) Foreign Body Suspected: insect If Insect Suspected: ear canal instilled with other (Saline) Foreign Body Removed: yes Foreign Body Removal Technique: irrigation Tympanic Membrane Intact: Yes Patient Tolerated Procedure: well, no complications Complications: none Medical Decision Making - Medical Decision Making 40-year-old male presents to emergency Department with a chief complaint of bug in the ear. Was able to remove the insect with a saline flush. Patient tolerated procedure well. Tympanic membrane within normal limits. Case discussed with Disposition Clinical Impression: Foreign body in right ear Disposition: HOME SELF-CARE Condition: Stable Instructions (If sedation given, give patient instructions): Ear Foreign Body (ED) Additional Instructions: Please return to the Emergency Department if symptoms worsen or any other concerns. Is patient prescribed a controlled substance at d/c from ED?: No Referrals: None,Stated [Primary Care Provider] - 1-2 days Austen Quispe MD [STAFF PHYSICIAN] - 1-2 days Time of Disposition: 23:56
== END 2020-09-24 00:08 | disposition home or self-care (01) ==
LOC: EC 22:23
DX: T16.1XXA Foreign body in right ear, initial encounter (principal); X58.XXXA Exposure to other specified factors, initial encounter
CPT/HCPCS: 69200; 99282